=== PATIENT | male | born 1950 | race Caucasian/White ===

== ENCOUNTER → 2021-01-27 | Day surgery (SDC) | payer MEDICARE, OTHER ==
[~2021-01-27] VITALS: Ht 177.8 cm; Wt 117.9 kg
[~2021-01-27] MED LIST: ACTOPLUS MET 11 EAC1 PO; ATORVASTATIN CA40 MG PO; COZAAR100 MG PO; LOVAZA1 GM PO; SYNTHROID75 MCG PO; TERAZOSIN 2 MG C2 MG PO; VITAMIN D50000 UNIT PO; [UNRECOGNIZED DRUG - OTHER] PO
[2021-01-27 08:35] LABS: HCT 43.8 % (42.0-52.0); HGB 13.9 g/dl (13.2-18.0); MCH 30.6 pg (25.0-31.0); MCHC 31.7 g/dL (32.0-36.0); MCV 96.5 fL (78.0-100.0); MPV 9.4 fL (6.0-9.5); RBC 4.54 M/uL (4.70-6.00); RDW 13.3 % (11.5-14.0); WBC 5.3 K/uL (4.0-10.5)
[2021-01-27 08:55] LABS: ALBUMIN 4.3 g/dL (3.4-5.0); CREATININE 0.77 mg/dL (0.67-1.17); GLOBULIN (CALCULATION) 3.3 g/dL; POTASSIUM 3.4 mmol/L (3.5-5.1); TOTAL PROTEIN 7.6 g/dL (6.4-8.2)
== END | disposition home or self-care (01) ==
LOC: FAS 07:29
PROVIDERS: Surgery
DX: Z12.11 Encounter for screening for malignant neoplasm of colon (principal); K57.30 Diverticulosis of large intestine without perforation or abscess without bleeding; I10 Essential (primary) hypertension; E11.9 Type 2 diabetes mellitus without complications; E03.9 Hypothyroidism, unspecified; E78.5 Hyperlipidemia, unspecified; J45.909 Unspecified asthma, uncomplicated; Z20.822 Contact with and (suspected) exposure to COVID-19; Z86.010 Personal history of colon polyps; Z80.0 Family history of malignant neoplasm of digestive organs; Z90.49 Acquired absence of other specified parts of digestive tract; Z79.84 Long term (current) use of oral hypoglycemic drugs; Z79.899 Other long term (current) drug therapy; Z88.8 Allergy status to other drugs, medicaments and biological substances
CPT/HCPCS: 36415; 80053; J2704; J7120; U0002